=== PATIENT | male | born 1960 | race African-American/Black ===

== ENCOUNTER 2019-09-19 04:28 | Emergency (ER) | payer MEDICAID ==
[~2019-09-19] VITALS: Ht 185.4 cm; Wt 83.0 kg
[2019-09-19 08:40] VITALS: BP 159/101
== END 2019-09-19 08:44 | disposition home or self-care (01) ==
LOC: ER 04:39
DX: S06.0X0A Concussion without loss of consciousness, initial encounter (principal); S01.01XA Laceration without foreign body of scalp, initial encounter; Y08.02XA Assault by strike by baseball bat, initial encounter; Y93.89 Activity, other specified; Y92.89 Other specified places as the place of occurrence of the external cause
CPT/HCPCS: 99284